=== PATIENT | female | born 1975 | race Caucasian/White ===

== ENCOUNTER → 2021-05-05 | Outpatient (REF) ==
--- NOTE | 2021-05-05 20:26 | REP ---
INDICATION: ARTHRITIS COMPARISON: None. TECHNIQUE: AP, lateral, coned-down views of the lumbar spine. FINDINGS: Three views of the lumbosacral spine demonstrate satisfactory alignment and lordosis without acute fracture / compression injury or subluxation. Examination is relatively age-appropriate and without significant degenerative changes by radiographic evaluation. IMPRESSION: 1. No acute fracture / compression injury or subluxation. 2. No significant degenerative changes by radiographic evaluation. If the patient remains symptomatic consider MRI for further investigation. <Electronically signed by Aiden Pittman > 05/05/212022
--- NOTE | 2021-05-05 20:44 | REP ---
INDICATION: ARTHRITIS. COMPARISON: None. TECHNIQUE: AP, lateral, swimmer's and open-mouth views of the cervical spine FINDINGS: Straightening of normal lordosis is nonspecific. Vertebral bodies are intact. No acute fracture/compression injury or subluxation. Disc spaces are relatively age-appropriate. IMPRESSION: Essentially age-appropriate examination. If the patient remains symptomatic consider MRI for further investigation. <Electronically signed by Aiden Pittman > 05/05/21 [id number]
== END ==
LOC: M PLAIMG 14:53
PROVIDERS: ATTEND Internal Medicine
DX: M46.92 Unspecified inflammatory spondylopathy, cervical region (principal); M46.97 Unspecified inflammatory spondylopathy, lumbosacral region

== ENCOUNTER → 2021-07-06 | Outpatient (CLI) | payer OTHER ==
--- NOTE | 2021-07-07 19:52 | REPVR ---
PROCEDURE INFORMATION: Exam: MR Cervical Spine Without Contrast Exam date and time: 07/06/2021 2:40 PM Age: 45 years old Clinical indication: Neck pain; Additional info: Disc degeneration TECHNIQUE: Imaging protocol: Multiplanar magnetic resonance images of the cervical spine without contrast. COMPARISON: CR Spine,Cervical 2 or 3 views 05/05/2021 3:44 PM FINDINGS: Cervical vertebral body heights are intact. Straightening of the cervical lordosis. The dens is intact. No abnormal marrow signal. No cord compression, expansion, or abnormal cord signal. Visualized structures of the posterior fossa are unremarkable. Soft tissues are unremarkable. C2-C3: No significant canal or foraminal narrowing. C3-C4: Small central disc protrusion causing focal mild canal narrowing. No significant foraminal narrowing. C4-C5: Left paracentral disc protrusion causing mild canal narrowing. No significant foraminal narrowing. C5-C6: No significant canal or foraminal narrowing. C6-C7: Slight posterior disc protrusion causes mild canal narrowing and mild bilateral foraminal narrowing. C7-T1: No significant canal or foraminal narrowing. IMPRESSION: 1. No acute findings in the cervical spine. No evidence of nerve root compression. 2. Mild spondylotic changes, as detailed above. Electronically signed by: Thomas Maldonado On 07/07/2021 19:52:12 PM
--- NOTE | 2021-07-07 19:59 | REPVR ---
PROCEDURE INFORMATION: Exam: MR Lumbar Spine Without Contrast Exam date and time: 07/06/2021 3:00 PM Age: 45 years old Clinical indication: Low back pain; Disc degeneration TECHNIQUE: Imaging protocol: Multiplanar magnetic resonance images of the lumbar spine without intravenous contrast. COMPARISON: CR Spine, Lumbosacral, partial 05/05/2021 3:44 PM FINDINGS: Vertebral body heights are maintained. No abnormal marrow signal. 0.2 cm grade 1 anterolisthesis of L4 on L5. No cord compression. No abnormal cord signal. Conus medullaris terminates at the L1 level. Paravertebral soft tissues are unremarkable. L1-L2: No significant canal or foraminal narrowing. L2-L3: No significant canal or foraminal narrowing. L3-L4: Slight broad-based disc bulge without significant canal or foraminal narrowing. L4-L5: Anterolisthesis and facet hypertrophy cause mild bilateral foraminal narrowing. No significant canal narrowing. L5-S1: Facet hypertrophy causes mild left foraminal narrowing. IMPRESSION: 1. No acute findings in the lumbar spine. No evidence of nerve root compression. 2. Mild spondylotic changes of the lumbar spine, as above. Electronically signed by: Thomas Maldonado On 07/07/2021 19:59:15 PM
== END ==
LOC: M PLAIMG 13:59
PROVIDERS: ATTEND Physician Assistant
DX: M50.320 Other cervical disc degeneration, mid-cervical region, unspecified level (principal); M51.36 Other intervertebral disc degeneration, lumbar region

== ENCOUNTER → 2021-07-13 | Outpatient (CLI) | payer OTHER ==
--- NOTE | 2021-07-13 16:05 | REP ---
INDICATION: CONTUSION LT SHOULDER. COMPARISON: None. TECHNIQUE: Coronal oblique T1, T2 fat sat, sagittal oblique T2 fat sat, axial T2 fat sat, gradient echo. FINDINGS: Rotator cuff: There is mild supraspinatus tendinopathy/tendinitis. No rotator cuff tendon tear is seen. Acromioclavicular joint: There are mild hypertrophic degenerative changes of the acromioclavicular joint. Acromion: Type 2 Biceps Tendon: In bicipital groove, no tenosynovitis. Hill Sach's deformity: None. Deltoid muscle: No abnormal signal. Biceps labral complex: There are findings compatible with a tear of the biceps labral complex. Labrum: There are findings compatible with a SLAP tear. Cartilage: No defects. Bone marrow: Ill-defined high signal is seen in the lateral humeral head on T2 weighted images compatible with bone bruise, with a possible subtle nondisplaced fracture of the greater tuberosity. Joint fluid: There is a very small joint effusion. IMPRESSION: Mild supraspinatus tendinopathy/tendinitis. No evidence of rotator cuff tendon tear. Mild hypertrophic degenerative changes acromioclavicular joint. There are findings compatible with a SLAP tear as well as an associated tear of the biceps labral complex. There are findings compatible with bone bruising of the lateral humeral head with a possible subtle nondisplaced fracture of the greater tuberosity. <Electronically signed by Tyrone Madison > 07/13/21 [id number]
== END ==
LOC: M PLAIMG 14:10
PROVIDERS: ATTEND Physician Assistant Surgical
DX: S40.012A Contusion of left shoulder, initial encounter (principal); M77.8 Other enthesopathies, not elsewhere classified; X58.XXXA Exposure to other specified factors, initial encounter; Y92.9 Unspecified place or not applicable; Y99.9 Unspecified external cause status; Y93.9 Activity, unspecified; M19.012 Primary osteoarthritis, left shoulder

== ENCOUNTER → 2025-08-25 | Outpatient (REF) | LOC: M PLAIMG 14:44 | PROVIDERS: ATTEND Internal Medicine | DX: R52 Pain, unspecified (principal) ==